=== PATIENT | male | born 1970 | race Caucasian/White ===

== ENCOUNTER 2020-03-30 19:36 | Inpatient (IN) | payer MEDICAID ==
[~2020-03-30] VITALS: Ht 177.8 cm; Wt 86.4 kg
[~2020-03-30 19:36] MED LIST: ALBU8.5H8 INH; GLYC10.7 INH; LACT1CAP26 PO; LEVO750T46 PO; LOSA25TA96 PO; MAGN400O6 PO; METR500T PO; NICO-687 TD
[2020-03-30 20:02] LABS: BASOPHILS # (AUTO) 0.1 X10'3 (0-0.2); BASOPHILS % (AUTO) 0.8 % (0-1); EOSINOPHILS % (AUTO) 0.3 % (0-6); HEMATOCRIT 47.4 % (42.0-52.0); HEMOGLOBIN 16.2 g/dl (14.0-17.9); LYMPHOCYTES # (AUTO) 3.7 X10'3 (1.1-4.8); LYMPHOCYTES % (AUTO) 22.6 % (21-51); MEAN CORPUSCULAR HEMOGLOBIN 35.9 PG (27.0-31.0); MEAN CORPUSCULAR HGB CONC 34.2 g/dL (33.0-36.5); MEAN CORPUSCULAR VOLUME 104.8 FL (78-98); MEAN PLATELET VOLUME 7.8 FL (7.4-10.4); MONOCYTES # (AUTO) 1.9 X10'3 (0-0.9); MONOCYTES % (AUTO) 11.5 % (2-12); NEUTROPHILS # (AUTO) 10.7 X10'3 (1.8-7.7); NEUTROPHILS % (AUTO) 64.8 % (42-75); PLATELET COUNT 211 X10'3 (140-440); RED BLOOD COUNT 4.52 X10'6 (4.70-6.10); RED CELL DISTRIBUTION WIDTH 15.8 % (11.5-14.5); WHITE BLOOD COUNT 16.5 X10'3 (4.5-11.0)
[2020-03-30 20:16] LABS: ALANINE AMINOTRANSFERASE 67 U/L (12-78); ALBUMIN 3.1 G/DL (3.4-5.0); ALBUMIN/GLOBULIN RATIO 0.7 (1.1-1.5); ALKALINE PHOSPHATASE 90 IU/L (46-116); ANION GAP 11 (8-16); ASPARTATE AMINO TRANSFERASE 67 U/L (10-37); BILIRUBIN,TOTAL 0.4 MG/DL (0.1-1.0); BLOOD UREA NITROGEN 6 MG/DL (7-18); BUN/CREATININE RATIO 6.1 (5.4-32.0); CALCIUM 8.1 MG/DL (8.5-10.1); CHLORIDE 102 MMOL/L (99-107); CREATININE 0.99 MG/DL (0.60-1.10); GLUCOSE 129 MG/DL (70-104); LIPASE 250 U/L (73-393); POTASSIUM 3.1 MMOL/L (3.5-5.1); SODIUM 137 MMOL/L (135-145); TOTAL CARBON DIOXIDE 23.7 MMOL/L (24-32); TOTAL PROTEIN 7.7 G/DL (6.4-8.2); eGFR 80 ML/MIN
[2020-03-30] MEDS ORDERED: iohexol 300mg/ml 100ml inj. ONE (20:37)
[2020-03-30] MEDS ORDERED: normal saline 1000ML IV soln IVB ONE (21:30)
[2020-03-30] MEDS ORDERED: piperacillin/tazo 3.375gm/50ml 50 ML IV ONE (21:40)
[2020-03-30] MEDS ORDERED: vancomycin/NS 1 GM ADD-VANTAGE 250 ML IV ONE (21:40)
[2020-03-30] MEDS ORDERED: morphine 4 MG/ML inj SYRINge IV ONE (21:45)
[2020-03-30] MEDS: piperacillin/tazo 3.375gm/50ml 50 ML IV SCH (22:08)
[2020-03-30] MEDS ORDERED: ondansetron/PF 4mg/2ml inj IV PRN (22:10)
[2020-03-30] MEDS ORDERED: potassium Cl 40MEQ/1/2NS 520ml 520 ML IV PRN ×2 (22:10)
[2020-03-30] MEDS ORDERED: morphine 2 MG/ML inj. syringe IV PRN (22:10)
[2020-03-30] MEDS ORDERED: acetaminophen 325mg tablet PO PRN (22:10)
[2020-03-30] MEDS ORDERED: magnesium hydroxide 30ml (MOM) UD suspension PO PRN (22:10)
[2020-03-30] MEDS ORDERED: potassium Cl 20 mEq SR tablet PO PRN ×2 (22:10)
[2020-03-30] MEDS ORDERED: mag hydrox/Alum hydrox/simeth 30ml oral suspension PO PRN (22:10)
[2020-03-30] MEDS ORDERED: thiamine inj. 100 MG in normal saline 100ml IV soln 100 ML IV ONE (22:15)
[2020-03-30] MEDS ORDERED: LORazepam 1 MG tablet PO PRN (22:15)
[2020-03-30 22:19] LABS: CLARITY,URINE CLEAR (Clear); COLOR,URINE YELLOW (Yellow); GLUCOSE, URINE NEGATIVE (Neg); KETONES,URINE NEGATIVE (Neg); LEUKOCYTE ESTERASE ,URINE NEGATIVE (Neg); NITRITES, URINE NEGATIVE (Neg); OCCULT BLOOD,URINE NEGATIVE (Neg); PH,URINE 6.5 (4.8-8.0); PROTEIN,URINE NEGATIVE (Neg); UROBILINOGEN,URINE 0.2 E.U/dL (0.2-1.0)
[2020-03-30 22:20] LABS: UA COLLECTION TYPE CLN CATCH MIDSTREAM
[2020-03-30] MEDS ORDERED: thiamine 100mg/ml 2ml inj. IV ONE (22:20)
[2020-03-31] VITALS (19 sets, daily range): BP systolic 105–182; BP diastolic 70–106
[2020-03-31] MEDS ORDERED: piperacillin/tazo 3.375gm/50ml 50 ML IV SCH
--- NOTE | 2020-03-31 00:16 | NUR ---
MICHELINE CALLED TO ASK ABOUT DIAGNOSIS ADVISED I CAN NOT RELEASED INFORMATION OVER PHONE SHE ASJED TO HAVE HER CALL HER.
--- NOTE | 2020-03-31 00:16 | NUR ---
Johann ramos in ED - 03/31/20 at 0246 by TYRA MICHELINE CALLED TO ASK ABOUT DIAGNOSIS ADVISED I CAN NOT RELEASED INFORMATION OVER PHONE SHE ASJED TO HAVE HER CALL HER.
[2020-03-31] MEDS: normal saline 1000ml 1,000 ML IV SCH ×2 (00:17→08:10)
[2020-03-31] MEDS: clindamycin 600mg/D5W 50ml 50 ML IV SCH ×2 (01:35→07:31)
--- NOTE | 2020-03-31 05:13 | NUR ---
Patient is alert and oriented,denies pain, had a tiny bowel movement, soft formed brown stool. Patient is friendly with staff. No alcohol breath. Patient electrolytes replaced. Patient will be admitted as an in patient .
[2020-03-31] MEDS: piperacillin/tazo 3.375gm/50ml 50 ML IV SCH (05:29)
[2020-03-31] MEDS: morphine 2 MG/ML inj. syringe IV PRN ×2 (05:32→09:46)
--- NOTE | 2020-03-31 07:00 | NUR ---
Patient in room ED 14. I have received report from Anamika KOVACS in ER and had the opportunity to ask questions will assume patient care when patient comes to the floor.
--- NOTE | 2020-03-31 07:23 | NUR ---
Patient arrived to floor used restroom and voided, Patient appears pretty shakey but steady on his feet checked blood glucose 81. Will continue to monitor. Patient is alert and oriented. Patient states he drinks black velvet every other day about 1 pint. Will continue to monitor and treat for DT.
[2020-03-31] MEDS: LORazepam 2 mg/ml vial IV PRN ×3 (07:31→20:57)
[2020-03-31 07:41] LABS: BASOPHILS # (AUTO) 0.1 X10'3 (0-0.2); BASOPHILS % (AUTO) 0.6 % (0-1); EOSINOPHILS % (AUTO) 0.2 % (0-6); HEMATOCRIT 41.4 % (42.0-52.0); HEMOGLOBIN 14.2 g/dl (14.0-17.9); LYMPHOCYTES # (AUTO) 1.5 X10'3 (1.1-4.8); LYMPHOCYTES % (AUTO) 13.7 % (21-51); MEAN CORPUSCULAR HEMOGLOBIN 36.2 PG (27.0-31.0); MEAN CORPUSCULAR HGB CONC 34.4 g/dL (33.0-36.5); MEAN CORPUSCULAR VOLUME 105.4 FL (78-98); MEAN PLATELET VOLUME 7.8 FL (7.4-10.4); MONOCYTES % (AUTO) 9.3 % (2-12); NEUTROPHILS # (AUTO) 8.5 X10'3 (1.8-7.7); NEUTROPHILS % (AUTO) 76.2 % (42-75); PLATELET COUNT 179 X10'3 (140-440); RED BLOOD COUNT 3.93 X10'6 (4.70-6.10); RED CELL DISTRIBUTION WIDTH 15.7 % (11.5-14.5); WHITE BLOOD COUNT 11.2 X10'3 (4.5-11.0)
--- NOTE | 2020-03-31 07:44 | NUR ---
PAGER ID: [phone] MESSAGE: [facility] [id number] Re: Antonio Victoria would like nicotine patch, can he have RT eval tx and IV fluids change to have D5? please call thank you
[2020-03-31] MEDS ORDERED: losartan 50mg tablet PO SCH (08:00)
[2020-03-31] MEDS ORDERED: K and/or MAG REPLACEMENT MC SCH (08:00)
[2020-03-31 08:03] LABS: ALANINE AMINOTRANSFERASE 66 U/L (12-78); ALBUMIN 2.8 G/DL (3.4-5.0); ALBUMIN/GLOBULIN RATIO 0.7 (1.1-1.5); ALKALINE PHOSPHATASE 80 IU/L (46-116); ANION GAP 10 (8-16); ASPARTATE AMINO TRANSFERASE 74 U/L (10-37); BILIRUBIN,TOTAL 0.5 MG/DL (0.1-1.0); BLOOD UREA NITROGEN 3 MG/DL (7-18); BUN/CREATININE RATIO 3.7 (5.4-32.0); CALCIUM 7.5 MG/DL (8.5-10.1); CHLORIDE 107 MMOL/L (99-107); CREATININE 0.81 MG/DL (0.60-1.10); GLUCOSE 87 MG/DL (70-104); POTASSIUM 4.1 MMOL/L (3.5-5.1); SODIUM 142 MMOL/L (135-145); TOTAL CARBON DIOXIDE 24.7 MMOL/L (24-32); eGFR > 90 ML/MIN
[2020-03-31] MEDS ORDERED: magnesium 4gm in 100ml NS 100 ML IV PRN (09:50)
[2020-03-31] MEDS ORDERED: dextrose 5%-normal saline 1,000 ML IV SCH (09:50)
[2020-03-31] MEDS ORDERED: magnesium Cl slow-release 64mg tablet PO PRN (09:50)
[2020-03-31] MEDS ORDERED: ipratropium/albuterol 3ml nebule NEB PRN (09:50)
[2020-03-31] MEDS ORDERED: nicotine 21mg patch - 24 hr TD ONE (09:50)
[2020-03-31] MEDS ORDERED: levoFLOXACIN-Levaquin 750MG/D5 150 ML IV SCH (09:55)
[2020-03-31] MEDS: metroNIDAZOLE-Flagyl 500mg/NS 100 ML IV SCH ×2 (10:11→16:00)
[2020-03-31 10:52] LABS: ETHANOL 0.114 GM/DL (0.0-0.010)
[2020-03-31] MEDS ORDERED: normal saline 1000ml 1,000 ML IVB ONE (11:35)
[2020-03-31] MEDS: ringers solution, lacted 1,000 ML IV SCH ×2 (12:01→20:57)
[2020-03-31 12:40] LABS: PRE OP PARTIAL THROMB. TIME 31 SECONDS (22-32)
[2020-03-31] MEDS ORDERED: LIDOcaine 1% 30ml preserv. free vial ONE (13:07)
[2020-03-31] MEDS ORDERED: BUPIVAcaine/PF 2.5 mg/ml (0.25%) 30ml vial ONE (13:07)
[2020-03-31] MEDS ORDERED: labetalol 20mg/4ml (5mg/ml) syringe IV PRN (13:25)
[2020-03-31] MEDS ORDERED: morphine 2 MG/ML inj. syringe IV PRN (13:25)
[2020-03-31] MEDS ORDERED: ondansetron/PF 4mg/2ml inj IV PRN (13:25)
[2020-03-31] MEDS ORDERED: hydrALAZINE 20mg/ml inj. IV PRN (13:25)
[2020-03-31] MEDS ORDERED: meperidine/PF 25mg/ml syringe IV PRN ×3 (13:25)
[2020-03-31] MEDS ORDERED: acetaminophen 1,000mg/100ml IV 100 ML IV PRN (13:25)
[2020-03-31] MEDS ORDERED: proCHLORperazine 10 MG/2 ml inj IV PRN (13:25)
[2020-03-31] MEDS ORDERED: morphine 4 MG/ML inj SYRINge IV PRN (13:25)
[2020-03-31] MEDS ORDERED: ringers solution, lacted 1,000 ML IV SCH (13:25)
--- NOTE | 2020-03-31 13:28 | NUR ---
Called [facility] to give report on patient coming to them. Report given to Dr gill.
--- NOTE | 2020-03-31 13:30 | NUR ---
Patient report given to Chasidy KOVACS in OR. All questions answered aware patient blood glucose is 76.
[2020-03-31] MEDS ORDERED: INDOCYANINE GREEN 25 MG/10 ML VIAL IV ONE (13:41)
[2020-03-31] MEDS ORDERED: dexamethasone sod phosphate 10mg/ml inj ONE (13:45)
[2020-03-31] MEDS ORDERED: ondansetron/PF 4mg/2ml inj ONE (13:45)
[2020-03-31] MEDS ORDERED: sevoflurane 250ml liquid IH ONE (13:45)
[2020-03-31] MEDS ORDERED: midazolam 2 mg/2 ml injection ONE (13:46)
[2020-03-31] MEDS ORDERED: fentaNYL /PF 50mcg/ml 5ml ampule ONE ×2 (13:52→15:07)
[2020-03-31 14:10] LABS: URINE AMPHETAMINE SCREEN NEGATIVE (Neg); URINE BARBITUATE SCREEN NEGATIVE (Neg); URINE BENZODIAZEPINES SCREEN NEGATIVE (Neg); URINE CANNABINOID SCREEN POSITIVE (Neg); URINE COCAINE SCREEN NEGATIVE (Neg); URINE METHADONE SCREEN NEGATIVE (Neg); URINE OPIATE SCREEN POSITIVE (Neg); URINE PHENCYCLIDINE SCREEN NEGATIVE (Neg)
[2020-03-31] MEDS ORDERED: thiamine inj. 100 MG, magnesium sulf injection 2 GM, MVI, adult No.4 with vit. K 10 ML ... IV ONE ×4 (14:40)
[2020-03-31] MEDS ORDERED: albumin (Human) 5% 250ml 250 ML IV ONE ×2 (14:43→16:35)
[2020-03-31] MEDS ORDERED: LIDOcaine 1% (10mg/ml) 2ml vial ONE (14:50)
[2020-03-31] MEDS ORDERED: LIDOcaine 2% (20mg/ml) 5ml vial ONE (14:50)
[2020-03-31] MEDS ORDERED: rocuronium 10mg/ml inj IV ONE ×2 (14:50)
[2020-03-31] MEDS ORDERED: propofol inj 20 ML IV ONE (14:50)
[2020-03-31 14:58] LABS: ABG BASE EXCESS -6.4 mmol/L (-2.0-2.0); ABG HCO3 20.8 mmol/L (22.0-26.0); ABG OXYGEN SATURATION 99.2 % (94-97); ABG PCO2 (T) 48.8 mmHg (35.0-48.0); FCOHb 0.1 % (0.0-3.9); FMetHb 0.4 % (0.0-1.5); FO2Hb 98.7 % (94-97); PATIENT TEMPERATURE 37.5; TOTAL HEMOGLOBIN 13.2 G/dl (14.0-18.0)
[2020-03-31] MEDS ORDERED: ertapenem sod inj 1 GM in normal saline 100ml IVPB IV ONE (15:00)
[2020-03-31 16:51] LABS: ABG HCO3 19.9 mmol/L (22.0-26.0); ABG OXYGEN SATURATION 96.9 % (94-97); ABG PCO2 (T) 34.8 mmHg (35.0-48.0); ABG PO2 (T) 89.4 mmHg (75.0-100.0); FCOHb 0.3 % (0.0-3.9); FMetHb 0.3 % (0.0-1.5); FO2Hb 96.3 % (94-97); TOTAL HEMOGLOBIN 11.7 G/dl (14.0-18.0)
[2020-03-31] MEDS ORDERED: midazolam 2 mg/2 ml injection IV ONE (17:30)
[2020-03-31] MEDS ORDERED: fentaNYL/PF 50MCG/1 ML 2ML syringe IV PRN (17:30)
--- NOTE | 2020-03-31 18:00 | NUR ---
Received from OR via BED IN ICU ROOM 243A, accompanied by Anesthesiologist DR MCLAIN and report given by Anesthesiologist. PT SEDATED ON VENT. ABDOMEN W/3 LAP SITES W/BANDAIDS CDI, [place] DRSG CDI. ABILIO TO BULB SX W/SANGUINOUS DRAINAGE, VIERA CATHETER TO GRAVITY DRAINAGE W/YELLOW URINE IN DRAINAGE BAG. NGT TO RIGHT NARE, BLOODY DRAINAGE NOTED. ART LINE TRANSDUCED. Addendum: 03/31/20 at 1835 by Kathleen Hough RN Amended: Links added.
[2020-03-31] MEDS: midazolam 100mg in NS 100ml 100 ML IV PRN (18:06)
[2020-03-31] MEDS: FENTANYL-0.9 % NACL/PF 100 ML IV PRN ×2 (18:07→23:24)
[2020-03-31] MEDS ORDERED: labetalol 20mg/4ml (5mg/ml) syringe IV ONE (18:39)
--- NOTE | 2020-03-31 18:50 | NUR ---
PT RECOVERED IN ICU, RECEIVING RN AT BEDSIDE. SEDATION AND PAIN MEDICATION INITIATED, ALL LINES INTACT, CXR OBTAINED AND REVIEWED BY DR MCLAIN. REPORT TO RECEIVING RN. Addendum: 03/31/20 at 1858 by Kathleen Hough RN Amended: Links added.
[2020-03-31] MEDS: albuterol 2.5 MG/3 ML nebule NEB SCH ×2 (19:19→23:07)
[2020-03-31] MEDS: K and/or MAG REPLACEMENT MC SCH (20:00)
[2020-03-31 20:31] LABS: ABG BASE EXCESS -4.1 mmol/L (-2.0-2.0); ABG HCO3 20.6 mmol/L (22.0-26.0); ABG OXYGEN SATURATION 94.4 % (94-97); ABG PCO2 (T) 36.8 mmHg (35.0-48.0); ABG PO2 (T) 73.9 mmHg (75.0-100.0); FCOHb 0.8 % (0.0-3.9); FMetHb 0.2 % (0.0-1.5); FO2Hb 93.5 % (94-97); PATIENT TEMPERATURE 37.1; PEEP 5 cm H2O; RESPIRATORY RATE 14 b/min; TIDAL VOLUME 500 mL; TOTAL HEMOGLOBIN 13.2 G/dl (14.0-18.0)
[2020-03-31] MEDS: losartan 25mg tablet PO SCH (20:57)
[2020-03-31] MEDS: piperacillin/tazo 4.5gm/100ml 100 ML IV SCH (20:57)
[2020-03-31] MEDS ORDERED: pantoprazole 40 MG vial IV ONE (23:40)
[2020-04-01] VITALS (24 sets, daily range): BP systolic 102–163; BP diastolic 66–99
[2020-04-01] MEDS: metroNIDAZOLE-Flagyl 500mg/NS 100 ML IV SCH ×2 (00:06→08:17)
[2020-04-01] MEDS: LORazepam 2 mg/ml vial IV PRN ×6 (00:06→23:25)
[2020-04-01] MEDS: ringers solution, lacted 1,000 ML IV SCH ×2 (00:55→08:17)
[2020-04-01] MEDS: albuterol 2.5 MG/3 ML nebule NEB SCH ×6 (03:05→23:08)
[2020-04-01 03:12] LABS: BASOPHILS # (AUTO) 0.1 X10'3 (0-0.2); BASOPHILS % (AUTO) 0.5 % (0-1); EOSINOPHILS % (AUTO) 0.1 % (0-6); HEMATOCRIT 35.2 % (42.0-52.0); HEMOGLOBIN 12.1 g/dl (14.0-17.9); LYMPHOCYTES # (AUTO) 1.3 X10'3 (1.1-4.8); LYMPHOCYTES % (AUTO) 11.6 % (21-51); MEAN CORPUSCULAR HEMOGLOBIN 36.5 PG (27.0-31.0); MEAN CORPUSCULAR HGB CONC 34.3 g/dL (33.0-36.5); MEAN CORPUSCULAR VOLUME 106.4 FL (78-98); MEAN PLATELET VOLUME 8.1 FL (7.4-10.4); MONOCYTES # (AUTO) 0.8 X10'3 (0-0.9); MONOCYTES % (AUTO) 7.4 % (2-12); NEUTROPHILS # (AUTO) 8.8 X10'3 (1.8-7.7); NEUTROPHILS % (AUTO) 80.4 % (42-75); PLATELET COUNT 152 X10'3 (140-440); RED CELL DISTRIBUTION WIDTH 15.7 % (11.5-14.5); WHITE BLOOD COUNT 10.9 X10'3 (4.5-11.0)
[2020-04-01 03:21] LABS: ALANINE AMINOTRANSFERASE 37 U/L (12-78); ALBUMIN 2.4 G/DL (3.4-5.0); ALBUMIN/GLOBULIN RATIO 0.8 (1.1-1.5); ALKALINE PHOSPHATASE 57 IU/L (46-116); ANION GAP 10 (8-16); ASPARTATE AMINO TRANSFERASE 36 U/L (10-37); BLOOD UREA NITROGEN 3 MG/DL (7-18); BUN/CREATININE RATIO 3.9 (5.4-32.0); CALCIUM 6.9 MG/DL (8.5-10.1); CHLORIDE 101 MMOL/L (99-107); CREATININE 0.77 MG/DL (0.60-1.10); GLUCOSE 94 MG/DL (70-104); MAGNESIUM 1.7 MG/DL (1.5-2.4); PHOSPHORUS 2.1 MG/DL (2.3-4.5); POTASSIUM 3.7 MMOL/L (3.5-5.1); SODIUM 135 MMOL/L (135-145); TOTAL CARBON DIOXIDE 23.6 MMOL/L (24-32); TOTAL PROTEIN 5.6 G/DL (6.4-8.2); eGFR > 90 ML/MIN
[2020-04-01 03:28] LABS: ABG BASE EXCESS -2.9 mmol/L (-2.0-2.0); ABG HCO3 21.8 mmol/L (22.0-26.0); ABG OXYGEN SATURATION 97.4 % (94-97); ABG PCO2 (T) 38.6 mmHg (35.0-48.0); ABG PO2 (T) 99.1 mmHg (75.0-100.0); FCOHb 0.9 % (0.0-3.9); FMetHb 0.1 % (0.0-1.5); FO2Hb 96.4 % (94-97); PATIENT TEMPERATURE 37.6; PEEP 5 cm H2O; RESPIRATORY RATE 14 b/min; TIDAL VOLUME 500 mL
[2020-04-01] MEDS: midazolam 100mg in NS 100ml 100 ML IV PRN (03:57)
[2020-04-01] MEDS: FENTANYL-0.9 % NACL/PF 100 ML IV PRN (05:42)
[2020-04-01] MEDS: K and/or MAG REPLACEMENT MC SCH ×2 (08:00→20:00)
[2020-04-01] MEDS: fluconazole/NS 400mg/200ml bag 200 ML IV SCH (08:17)
[2020-04-01] MEDS: heparin, porcine 5000 units/ml vial SQ SCH ×2 (08:18→20:59)
[2020-04-01] MEDS: losartan 25mg tablet PO SCH ×2 (08:18→20:50)
[2020-04-01] MEDS: piperacillin/tazo 4.5gm/100ml 100 ML IV SCH ×2 (08:21→20:55)
[2020-04-01] MEDS: pantoprazole 40 MG vial IV SCH (08:21)
[2020-04-01] MEDS: nicotine 21mg patch - 24 hr TD SCH (08:22)
[2020-04-01] MEDS: thiamine inj. 100 MG, magnesium sulf injection 2 GM, MVI, adult No.4 with vit. K 10 ML ... IV SCH ×4 (08:22)
[2020-04-01] MEDS ORDERED: furosemide 40mg/4ml inj IV ONE (08:55)
--- NOTE | 2020-04-01 16:23 | NUR ---
RT UNAVAILABLE FOR 1100 SVN
--- NOTE | 2020-04-01 17:10 | NUR ---
Patient extubated at approximately 1520. Sats 97% on 3L NC. Patient medication with Ativan x2 this shift for noted tremors from ETOH withdrawal. Will continue to monitor.
[2020-04-01] MEDS ORDERED: mineral oil/petrolatum ophthal oint EACHEYE SCH (20:00)
[2020-04-01] MEDS: mineral oil/petrolatum ophthal oint EACHEYE SCH (20:00)
[2020-04-01] MEDS: morphine 2 MG/ML inj. syringe IV PRN (22:16)
[2020-04-02] VITALS (21 sets, daily range): BP systolic 138–161; BP diastolic 76–109
[2020-04-02] MEDS: mineral oil/petrolatum ophthal oint EACHEYE SCH ×4 (02:00→20:00)
[2020-04-02] MEDS: LORazepam 2 mg/ml vial IV PRN ×6 (02:06→20:53)
[2020-04-02] MEDS: morphine 2 MG/ML inj. syringe IV PRN ×4 (02:21→23:44)
[2020-04-02 02:51] LABS: BASOPHILS % (AUTO) 0.4 % (0-1); EOSINOPHILS % (AUTO) 0.4 % (0-6); HEMATOCRIT 34.2 % (42.0-52.0); HEMOGLOBIN 11.7 g/dl (14.0-17.9); LYMPHOCYTES # (AUTO) 1.3 X10'3 (1.1-4.8); LYMPHOCYTES % (AUTO) 9.9 % (21-51); MEAN CORPUSCULAR HEMOGLOBIN 36.4 PG (27.0-31.0); MEAN CORPUSCULAR HGB CONC 34.4 g/dL (33.0-36.5); MEAN CORPUSCULAR VOLUME 105.9 FL (78-98); MEAN PLATELET VOLUME 8.2 FL (7.4-10.4); MONOCYTES # (AUTO) 1.1 X10'3 (0-0.9); MONOCYTES % (AUTO) 8.6 % (2-12); NEUTROPHILS # (AUTO) 10.4 X10'3 (1.8-7.7); NEUTROPHILS % (AUTO) 80.7 % (42-75); PLATELET COUNT 171 X10'3 (140-440); RED BLOOD COUNT 3.23 X10'6 (4.70-6.10); RED CELL DISTRIBUTION WIDTH 15.2 % (11.5-14.5); WHITE BLOOD COUNT 12.8 X10'3 (4.5-11.0)
[2020-04-02 02:59] LABS: ALANINE AMINOTRANSFERASE 30 U/L (12-78); ALBUMIN 2.3 G/DL (3.4-5.0); ALBUMIN/GLOBULIN RATIO 0.6 (1.1-1.5); ALKALINE PHOSPHATASE 59 IU/L (46-116); ANION GAP 9 (8-16); ASPARTATE AMINO TRANSFERASE 27 U/L (10-37); BILIRUBIN,TOTAL 0.7 MG/DL (0.1-1.0); BLOOD UREA NITROGEN 4 MG/DL (7-18); BUN/CREATININE RATIO 5.2 (5.4-32.0); CALCIUM 7.4 MG/DL (8.5-10.1); CHLORIDE 101 MMOL/L (99-107); CREATININE 0.77 MG/DL (0.60-1.10); GLUCOSE 87 MG/DL (70-104); MAGNESIUM 2.1 MG/DL (1.5-2.4); PHOSPHORUS 1.7 MG/DL (2.3-4.5); POTASSIUM 3.8 MMOL/L (3.5-5.1); SODIUM 135 MMOL/L (135-145); eGFR > 90 ML/MIN
[2020-04-02] MEDS: albuterol 2.5 MG/3 ML nebule NEB SCH ×6 (03:01→22:46)
[2020-04-02] MEDS: ringers solution, lacted 1,000 ML IV SCH ×3 (05:32→22:06)
--- NOTE | 2020-04-02 06:50 | NUR ---
Patient in room ICU 2042. I have received report from FERMÍN Prince and had the opportunity to ask questions and assume patient care.
[2020-04-02] MEDS: piperacillin/tazo 4.5gm/100ml 100 ML IV SCH ×2 (07:44→20:52)
[2020-04-02] MEDS: pantoprazole 40 MG vial IV SCH (07:44)
[2020-04-02] MEDS: thiamine inj. 100 MG, magnesium sulf injection 2 GM, MVI, adult No.4 with vit. K 10 ML ... IV SCH ×4 (07:44)
[2020-04-02] MEDS: fluconazole/NS 400mg/200ml bag 200 ML IV SCH (07:44)
[2020-04-02] MEDS: heparin, porcine 5000 units/ml vial SQ SCH ×2 (07:45→21:04)
[2020-04-02] MEDS: losartan 25mg tablet PO SCH ×2 (07:46→21:00)
[2020-04-02] MEDS: K and/or MAG REPLACEMENT MC SCH ×2 (08:36→20:00)
[2020-04-02] MEDS: nicotine 21mg patch - 24 hr TD SCH (08:36)
--- NOTE | 2020-04-02 13:20 | NUR ---
RN explained to the pt. after the Dr. okayed taking out his NG tube that she was going to come back into the room a few minutes later and pull it. when RN came back, pt. was fumbling around in bed like he was trying to stand up and when questioned, pt. said he pulled his NG tube out. RN explained the importance of not pulling his own lines out and how it could do more harm than good. pt. verbalized understanding. Relief nurse was in the room about an hour later to find the pt. pulling on his central line in his neck. same education given and IV dressing reinforced. Bed alarm on pt. d/t pt. being impulsive and trying to get out of bed all shift. education provided multiple times fire investigation lieutenant light and pt. lines.
--- NOTE | 2020-04-02 18:31 | NUR ---
Problems reprioritized. Patient report given, questions answered & plan of care reviewed with FERMÍN Nye.
--- NOTE | 2020-04-02 20:00 | NUR ---
PT HAS NOTICEABLE TREMORS Addendum: 04/03/20 at 0154 by Lynnette Sawyer RN Amended: Links added.
[2020-04-02] MEDS: lactobacillus rhamnosus 10,000 MMU CELLS/CAPSULE PO SCH (21:00)
[2020-04-03] VITALS (24 sets, daily range): BP systolic 97–177; BP diastolic 45–136
[2020-04-03] MEDS: mineral oil/petrolatum ophthal oint EACHEYE SCH ×4 (01:58→19:24)
--- NOTE | 2020-04-03 02:15 | NUR ---
PT BEGAN TRYING TO LEAVE, PULLED OFF HIS ABDOMINAL DRESSING AROUND HIS ABILIO DRAIN, WAS PULLING AT HIS CENTRAL LINE, AND PULLING OFF HIS GOWN. PT WAS CALMED DOWN, AND AGREED TO STAY. MARCH JAC JOHNSON WAS CALLED AND ORDERS WERE RECEIVED FOR A ONE TIME NICOTINE PATCH, ATIVAN WAS REORDERED, CENTRAL LINE WAS DC'D AND VIERA REMOVED. Addendum: 04/03/20 at 0425 by Lynnette Sawyer RN PT STABLE, CONTINUING TO MONITOR
[2020-04-03] MEDS: albuterol 2.5 MG/3 ML nebule NEB SCH ×5 (02:51→18:32)
[2020-04-03] MEDS ORDERED: LORazepam 2 mg/ml vial IV PRN (02:55)
[2020-04-03] MEDS ORDERED: nicotine 21mg patch - 24 hr TD ONE (02:55)
[2020-04-03] MEDS ORDERED: LORazepam 2 mg/ml vial ONE ×2 (03:24→05:37)
[2020-04-03] MEDS: morphine 2 MG/ML inj. syringe IV PRN (03:45)
[2020-04-03] MEDS: LORazepam 2 mg/ml vial IV PRN ×5 (05:50→19:23)
[2020-04-03] MEDS: heparin, porcine 5000 units/ml vial SQ SCH ×2 (08:00→19:28)
[2020-04-03] MEDS: nicotine 21mg patch - 24 hr TD SCH (08:00)
[2020-04-03] MEDS: losartan 25mg tablet PO SCH ×2 (08:00→19:24)
[2020-04-03] MEDS: lactobacillus rhamnosus 10,000 MMU CELLS/CAPSULE PO SCH ×2 (08:01→19:23)
[2020-04-03] MEDS: fluconazole/NS 400mg/200ml bag 200 ML IV SCH (08:01)
[2020-04-03] MEDS: piperacillin/tazo 4.5gm/100ml 100 ML IV SCH ×2 (08:01→19:24)
[2020-04-03] MEDS: thiamine inj. 100 MG, magnesium sulf injection 2 GM, MVI, adult No.4 with vit. K 10 ML ... IV SCH ×4 (08:01)
[2020-04-03] MEDS: pantoprazole 40 MG vial IV SCH (08:01)
--- NOTE | 2020-04-03 09:44 | NUR ---
[employer] J[employer] OPERATOR CALLED FOR PRN MEDICATION FOR SBP, STATED WE WOULD ADDRESS IT IN ROUNDS
--- NOTE | 2020-04-03 10:02 | NUR ---
Initial: Pt admit DX sigmoid abscess r/t diverticulitis s/p ex lap sigmoid colectomy, SIRS, and etoh per MD note. Pt extubated advanced to clear liquid diet yesterday PO 0-25% avg meals not meeting needs. Receiving banana bag for etoh hx. LBM 04/02. Abdomen ABILIO 40ml output past 24 hours per EMR. Would benefit from diverticulitis diet ed once stable and appropriate post-op this admit. Will monitor for diet advancement and tolerance post-op. Rec: 1. advance diet as medically indicated to low-residue 2. monitor for ONS needs 3. thiamin, folic, MVI for etoh hx 4. bowel care per rx 5. scaled wt this admit Addendum: 04/03/20 at [address] Amended: Links added.
[2020-04-03] MEDS: cloNIDine 0.1 mg tablet PO SCH ×3 (11:06→21:00)
[2020-04-03] MEDS: HYDROcodone/acetaminophen 10/325mg tab PO PRN (11:09)
[2020-04-03] MEDS ORDERED: dexmedetomidin/NS 400mcg/100ml 100 ML IV SCH (12:25)
[2020-04-03] MEDS: dexmedetomidine/D5W 100mL 100 ML IV SCH ×2 (12:43→19:05)
[2020-04-03] MEDS ORDERED: cloNIDine 0.1 mg tablet PO SCH (13:00)
--- NOTE | 2020-04-03 18:10 | NUR ---
sbar report given to night nurse, questions answered, EMAR reviewed.
--- NOTE | 2020-04-03 18:11 | NUR ---
Patient in room ICU 2046. I have received report from FERMÍN Zepeda and had the opportunity to ask questions and assume patient care. Patient sleeping, but wakes easily. He is confused and incontinent, I will clean him up with the help of his sitter.
[2020-04-03] MEDS: K and/or MAG REPLACEMENT MC SCH ×2 (18:48→19:24)
[2020-04-03] MEDS: ringers solution, lacted 1,000 ML IV SCH (19:06)
[2020-04-04] VITALS (23 sets, daily range): BP systolic 107–167; BP diastolic 62–108
[2020-04-04] MEDS: LORazepam 2 mg/ml vial IV PRN ×7 (00:31→21:10)
[2020-04-04] MEDS: dexmedetomidine/D5W 100mL 100 ML IV SCH ×2 (04:44→23:14)
[2020-04-04] MEDS: ringers solution, lacted 1,000 ML IV SCH ×2 (05:06→16:20)
--- NOTE | 2020-04-04 05:38 | NUR ---
Patient continues to be confused and agitated, DT's are hitting him hard. Precedex was started yesterday and Ativan is on board Q2hrs. I will pass on to dayshift that Philip might word better than Ativan.
--- NOTE | 2020-04-04 06:08 | NUR ---
Problems reprioritized. Patient report given, questions answered & plan of care reviewed with FERMÍN Zepeda.
[2020-04-04 06:30] LABS: BASOPHILS # (AUTO) 0.1 X10'3 (0-0.2); BASOPHILS % (AUTO) 0.6 % (0-1); EOSINOPHILS # (AUTO) 0.2 X10'3 (0-0.9); EOSINOPHILS % (AUTO) 1.8 % (0-6); HEMATOCRIT 36.7 % (42.0-52.0); HEMOGLOBIN 12.7 g/dl (14.0-17.9); LYMPHOCYTES # (AUTO) 1.3 X10'3 (1.1-4.8); LYMPHOCYTES % (AUTO) 14.6 % (21-51); MEAN CORPUSCULAR HEMOGLOBIN 36.4 PG (27.0-31.0); MEAN CORPUSCULAR HGB CONC 34.6 g/dL (33.0-36.5); MEAN CORPUSCULAR VOLUME 105.1 FL (78-98); MEAN PLATELET VOLUME 7.7 FL (7.4-10.4); MONOCYTES # (AUTO) 1.2 X10'3 (0-0.9); MONOCYTES % (AUTO) 13.7 % (2-12); NEUTROPHILS % (AUTO) 69.3 % (42-75); PLATELET COUNT 277 X10'3 (140-440); RED CELL DISTRIBUTION WIDTH 15.1 % (11.5-14.5); WHITE BLOOD COUNT 8.7 X10'3 (4.5-11.0)
[2020-04-04 06:40] LABS: ALANINE AMINOTRANSFERASE 28 U/L (12-78); ALBUMIN 2.5 G/DL (3.4-5.0); ALBUMIN/GLOBULIN RATIO 0.6 (1.1-1.5); ALKALINE PHOSPHATASE 66 IU/L (46-116); ANION GAP 11 (8-16); ASPARTATE AMINO TRANSFERASE 25 U/L (10-37); BILIRUBIN,TOTAL 0.7 MG/DL (0.1-1.0); BLOOD UREA NITROGEN 4 MG/DL (7-18); BUN/CREATININE RATIO 5.5 (5.4-32.0); CALCIUM 8.7 MG/DL (8.5-10.1); CHLORIDE 103 MMOL/L (99-107); CREATININE 0.73 MG/DL (0.60-1.10); GLUCOSE 106 MG/DL (70-104); MAGNESIUM 2.1 MG/DL (1.5-2.4); PHOSPHORUS 2.6 MG/DL (2.3-4.5); POTASSIUM 3.7 MMOL/L (3.5-5.1); SODIUM 136 MMOL/L (135-145); TOTAL CARBON DIOXIDE 21.6 MMOL/L (24-32); eGFR > 90 ML/MIN
[2020-04-04] MEDS: losartan 25mg tablet PO SCH ×2 (07:04→20:01)
[2020-04-04] MEDS: piperacillin/tazo 4.5gm/100ml 100 ML IV SCH ×2 (07:05→20:02)
[2020-04-04] MEDS: HYDROcodone/acetaminophen 10/325mg tab PO PRN (07:05)
[2020-04-04] MEDS: lactobacillus rhamnosus 10,000 MMU CELLS/CAPSULE PO SCH ×2 (07:05→20:01)
[2020-04-04] MEDS: cloNIDine 0.1 mg tablet PO SCH ×3 (07:05→20:01)
[2020-04-04] MEDS: thiamine inj. 100 MG, magnesium sulf injection 2 GM, MVI, adult No.4 with vit. K 10 ML ... IV SCH ×4 (07:05)
[2020-04-04] MEDS: fluconazole/NS 400mg/200ml bag 200 ML IV SCH (07:06)
[2020-04-04] MEDS: nicotine 21mg patch - 24 hr TD SCH (07:06)
[2020-04-04] MEDS: pantoprazole 40 MG vial IV SCH (07:06)
[2020-04-04] MEDS: heparin, porcine 5000 units/ml vial SQ SCH ×2 (07:06→20:02)
[2020-04-04] MEDS ORDERED: hydrALAZINE 20mg/ml inj. IV ONE (09:50)
[2020-04-04] MEDS: hydrALAZINE 20mg/ml inj. IV PRN ×2 (09:54→16:15)
[2020-04-04] MEDS: niCARDipine-NS 40mg/200ml IVPB 200 ML IV SCH ×2 (13:49→17:27)
--- NOTE | 2020-04-04 18:11 | NUR ---
sbar report given to night nurse, emar reviewed, questions answered.
--- NOTE | 2020-04-04 18:15 | NUR ---
Patient in room ICU 2046. I have received report from FERMÍN Zepeda and had the opportunity to ask questions and assume patient care. Patient calm and cooperative, resting on hospital bed. Sitter is at bedside, I will continue to monitor.
[2020-04-04] MEDS: K and/or MAG REPLACEMENT MC SCH ×2 (20:00→20:02)
[2020-04-05] VITALS (19 sets, daily range): BP systolic 102–132; BP diastolic 68–90
[2020-04-05] MEDS: niCARDipine-NS 40mg/200ml IVPB 200 ML IV SCH ×2 (02:39→08:32)
--- NOTE | 2020-04-05 06:14 | NUR ---
Problems reprioritized. Patient report given, questions answered & plan of care reviewed with FERMÍN Fiore.
[2020-04-05 06:21] LABS: MAGNESIUM 2.1 MG/DL (1.5-2.4); PHOSPHORUS 3.6 MG/DL (2.3-4.5)
--- NOTE | 2020-04-05 06:30 | NUR ---
Received report from haritha KOVACS.
[2020-04-05] MEDS: K and/or MAG REPLACEMENT MC SCH ×2 (08:00→20:00)
[2020-04-05] MEDS: thiamine inj. 100 MG, magnesium sulf injection 2 GM, MVI, adult No.4 with vit. K 10 ML ... IV SCH ×4 (08:25)
[2020-04-05] MEDS: piperacillin/tazo 4.5gm/100ml 100 ML IV SCH (08:25)
[2020-04-05] MEDS: nicotine 21mg patch - 24 hr TD SCH (08:27)
[2020-04-05] MEDS: cloNIDine 0.1 mg tablet PO SCH ×3 (08:28→20:43)
[2020-04-05] MEDS: fluconazole 100mg tablet PO SCH (08:28)
[2020-04-05] MEDS: LORazepam 2 mg/ml vial IV PRN (08:28)
[2020-04-05] MEDS: heparin, porcine 5000 units/ml vial SQ SCH ×2 (08:28→20:48)
[2020-04-05] MEDS: losartan 25mg tablet PO SCH ×2 (08:29→20:44)
[2020-04-05] MEDS: lactobacillus rhamnosus 10,000 MMU CELLS/CAPSULE PO SCH ×2 (08:29→20:43)
[2020-04-05] MEDS: pantoprazole 40mg Tablet.DR PO SCH (08:29)
[2020-04-05] MEDS: ringers solution, lacted 1,000 ML IV SCH (08:32)
--- NOTE | 2020-04-05 11:34 | NUR ---
F/u 04/05: Pt not appropriate for diverticulitis ed at this time r/t lauren w/d. Written low-fiber MNT handout w/ RD contact information placed in pt chart. Addendum: 04/05/20 at [address] RD Amended: Links added.
[2020-04-05] MEDS: piperacillin/tazo 3.375gm/50ml 50 ML IV SCH (13:58)
--- NOTE | 2020-04-05 14:58 | NUR ---
Patient in room ICU 2046. I have received report from FERMÍN Fiore and had the opportunity to ask questions and assume patient care. Awaiting patient arrival to room 3029q.
--- NOTE | 2020-04-05 15:51 | NUR ---
Patient transferred to room 3023C via hospital bed with well puller, all belongings with patient. Report given to receiving RN.
--- NOTE | 2020-04-05 16:05 | NUR ---
Received patient to room 3023C via bed accompanied by x2 staff. Sitter at bedside. Patient alert and oriented x3, very pleasant and no complaints at this time. Patient oriented to room and call light. Call light placed within reach, bed low and locked. Tele monitor #4 on.
--- NOTE | 2020-04-05 18:22 | NUR ---
Problems reprioritized. Patient report given, questions answered & plan of care reviewed with FERMÍN Luo.
--- NOTE | 2020-04-05 18:30 | NUR ---
Patient in room PCU 3023. I have received report from SHANNAN KOVACS and had the opportunity to ask questions and assume patient care.
[2020-04-06] MEDS: piperacillin/tazo 3.375gm/50ml 50 ML IV SCH ×4 (00:05→23:19)
[2020-04-06 02:00] VITALS: BP 121/73
[2020-04-06 06:00] VITALS: BP 118/82
--- NOTE | 2020-04-06 06:30 | NUR ---
Problems reprioritized. Patient report given, questions answered & plan of care reviewed with PARVIZ KOVACS.
--- NOTE | 2020-04-06 06:56 | NUR ---
Patient in room PCU 3023. I have received report from FERMÍN Luo and had the opportunity to ask questions and assume patient care.
[2020-04-06] MEDS: pantoprazole 40mg Tablet.DR PO SCH (07:42)
[2020-04-06] MEDS: losartan 25mg tablet PO SCH ×2 (07:42→19:15)
[2020-04-06] MEDS: lactobacillus rhamnosus 10,000 MMU CELLS/CAPSULE PO SCH ×2 (07:43→19:15)
[2020-04-06] MEDS: nicotine 21mg patch - 24 hr TD SCH (07:43)
[2020-04-06] MEDS: cloNIDine 0.1 mg tablet PO SCH ×3 (07:43→20:22)
[2020-04-06] MEDS: heparin, porcine 5000 units/ml vial SQ SCH ×2 (07:44→19:16)
[2020-04-06] MEDS: K and/or MAG REPLACEMENT MC SCH ×2 (08:00→20:00)
[2020-04-06] MEDS: fluconazole 100mg tablet PO SCH (09:01)
[2020-04-06 11:00] VITALS: BP 123/76
--- NOTE | 2020-04-06 12:29 | NUR ---
Reassessment: Surgical wound present to abdomen with ABILIO drain. Pt admit DX sigmoid abscess r/t diverticulitis s/p ex lap sigmoid colectomy, SIRS, and etoh per MD note. PO 0-25% avg meals regular diet not meeting needs, however did improve to 50-75% for past two meals. Receiving banana bag for etoh hx. Last BM 04/06. Pt seen at bedside, reports improving appetite and reported to eat all of this breakfast on 04/06, states does not like peaches, notified dietary. Able to fill out menu and make selections; reports no GI symptoms. Encouraged pt to eat protein. Will continue to follow. Rec: 1. Continue regular diet 2. monitor for ONS needs, current PO Intake and appetite are improving 3. thiamin, folic, MVI for etoh hx 4. bowel care per rx 5. scaled wt this admit Addendum: 04/06/20 at [address] Amended: Links added.
[2020-04-06 15:00] VITALS: BP 135/87
[2020-04-06 18:00] VITALS: BP 134/89
--- NOTE | 2020-04-06 18:00 | NUR ---
Patient in room PCU 3023. I have received report from Anna KOVACS and had the opportunity to ask questions and assume patient care.
--- NOTE | 2020-04-06 18:31 | NUR ---
Problems reprioritized. Patient report given, questions answered & plan of care reviewed with FERMÍN Uribe.
[2020-04-07 02:00] VITALS: BP 134/74
--- NOTE | 2020-04-07 06:50 | NUR ---
Problems reprioritized. Patient report given, questions answered & plan of care reviewed with Florecita KOVACS.
--- NOTE | 2020-04-07 06:58 | NUR ---
Patient in room PCU 3023. I have received report from Anita KOVACS and had the opportunity to ask questions and assume patient care.
[2020-04-07] MEDS: cloNIDine 0.1 mg tablet PO SCH (09:32)
[2020-04-07] MEDS: pantoprazole 40mg Tablet.DR PO SCH (09:32)
[2020-04-07] MEDS: lactobacillus rhamnosus 10,000 MMU CELLS/CAPSULE PO SCH (09:33)
[2020-04-07] MEDS: nicotine 21mg patch - 24 hr TD SCH (09:34)
[2020-04-07] MEDS: fluconazole 100mg tablet PO SCH (09:34)
[2020-04-07] MEDS: heparin, porcine 5000 units/ml vial SQ SCH (09:44)
[2020-04-07] MEDS: losartan 25mg tablet PO SCH (09:44)
[2020-04-07] MEDS: piperacillin/tazo 3.375gm/50ml 50 ML IV SCH (09:46)
[2020-04-07] MEDS ORDERED: THIA50TA10 PO (11:04)
[2020-04-07] MEDS ORDERED: CLON0.1T2 PO (11:04)
[2020-04-07] MEDS ORDERED: FOLI0.4T2 PO (11:04)
[2020-04-07] MEDS ORDERED: LACT1CAP26 PO (11:04)
[2020-04-07] MEDS ORDERED: AMOX-580 PO (11:04)
[2020-04-07] MEDS ORDERED: MULT-1085 PO (11:04)
[2020-04-07] MEDS ORDERED: PANT40TA54 PO (11:04)
--- NOTE | 2020-04-07 14:02 | NUR ---
Patient is OK to discharge per MD orders. Patient PIVs and tele was removed. Discharge instructions were gone over adan all medications were educated on. Patient was able to transfer self and ambulate without assistance. Patient dressed self and called for ride. Patient was escorted to the front main via wheelchair and nurse. Patient was met by in private car. Patient and spouse in good spirits
== END 2020-04-07 13:59 | disposition home or self-care (01) | DRG 710 ==
LOC: ER 19:36 → ED HOLD 22:08 → SUR 3N 03-31 07:25 → PACU 03-31 17:18 → ICU 2S 03-31 17:58 → PCU 3S 04-05 15:37
PROVIDERS: ADMIT Internal Medicine; ATTEND Family Medicine
PROC: BW211ZZ Computerized Tomography (CT Scan) of Abdomen and Pelvis using Low Osmolar Contrast (ICD-10-PCS; 2020-03-30)
PROC: 0W9J4ZZ Drainage of Pelvic Cavity, Percutaneous Endoscopic Approach (ICD-10-PCS; 2020-03-31)
PROC: 8E0W4CZ Robotic Assisted Procedure of Trunk Region, Percutaneous Endoscopic Approach (ICD-10-PCS; 2020-03-31)
PROC: 0DTN4ZZ Resection of Sigmoid Colon, Percutaneous Endoscopic Approach (ICD-10-PCS; principal; 2020-03-31 13:45)
DX: A41.9 Sepsis, unspecified organism (principal); F12.90 Cannabis use, unspecified, uncomplicated; F17.210 Nicotine dependence, cigarettes, uncomplicated; I10 Essential (primary) hypertension; J44.9 Chronic obstructive pulmonary disease, unspecified; K57.20 Diverticulitis of large intestine with perforation and abscess without bleeding; K59.00 Constipation, unspecified; K65.1 Peritoneal abscess; Z78.1 Physical restraint status; Z91.19 Patient's noncompliance with other medical treatment and regimen; J96.00 Acute respiratory failure, unspecified whether with hypoxia or hypercapnia; F10.10 Alcohol abuse, uncomplicated; Z20.822 Contact with and (suspected) exposure to COVID-19
CPT/HCPCS: 36415; 36600; 71045; 74177; 80053; 80305; 80320; 81003; 82803; 82948; 83605; 83690; 83735; 84100; 84145; 84443; 85018; 85025; 85610; 85730; 87040; 87070; 87081; 87635; 93005; 94002; 94003; 94640; 94760; 96374; 96375; 97110; 97116; 97161; 97530; 99285; A4215; A4618; A6258; A6402; A7000; C1758; C9113; G0378; J0360; J1100; J1335; J1450; J1644; J1940; J1956; J2001; J2060; J2250; J2270; J2405; J2543; J2704; J3010; J3370; J3411; J3475; J3480; J3490; J7030; J7040; J7042; J7060; J7120; P9045; Q9967

== ENCOUNTER 2020-06-22 20:45 | Emergency (ER) | payer MEDICAID ==
[~2020-06-22] VITALS: Ht 177.8 cm; Wt 81.8 kg
[~2020-06-22 20:45] MED LIST changes: +CLON0.1T2 PO; -GLYC10.7 INH; -LEVO750T46 PO; -MAGN400O6 PO; -METR500T PO; +MULT-1085 PO; -NICO-687 TD; +PANT40TA54 PO; +THIA50TA10 PO
[2020-06-22] MEDS ORDERED: aspirin 81mg tab.chew PO ONE (21:10)
[2020-06-22 21:26] LABS: BASOPHILS # (AUTO) 0.1 X10'3 (0-0.2); EOSINOPHILS # (AUTO) 0.1 X10'3 (0-0.9); EOSINOPHILS % (AUTO) 0.8 % (0-6); HEMATOCRIT 51.5 % (42.0-52.0); HEMOGLOBIN 17.7 g/dl (14.0-17.9); LYMPHOCYTES # (AUTO) 3.2 X10'3 (1.1-4.8); LYMPHOCYTES % (AUTO) 37.6 % (21-51); MEAN CORPUSCULAR HEMOGLOBIN 35.9 PG (27.0-31.0); MEAN CORPUSCULAR HGB CONC 34.4 g/dL (33.0-36.5); MEAN CORPUSCULAR VOLUME 104.1 FL (78-98); MEAN PLATELET VOLUME 8.3 FL (7.4-10.4); MONOCYTES # (AUTO) 0.7 X10'3 (0-0.9); MONOCYTES % (AUTO) 8.5 % (2-12); NEUTROPHILS # (AUTO) 4.5 X10'3 (1.8-7.7); NEUTROPHILS % (AUTO) 52.1 % (42-75); PLATELET COUNT 166 X10'3 (140-440); RED BLOOD COUNT 4.95 X10'6 (4.70-6.10); RED CELL DISTRIBUTION WIDTH 17.1 % (11.5-14.5); WHITE BLOOD COUNT 8.6 X10'3 (4.5-11.0)
[2020-06-22 21:43] LABS: ALANINE AMINOTRANSFERASE 106 U/L (12-78); ALBUMIN 3.9 G/DL (3.4-5.0); ALBUMIN/GLOBULIN RATIO 0.9 (1.1-1.5); ALKALINE PHOSPHATASE 78 IU/L (46-116); ANION GAP 13 (8-16); ASPARTATE AMINO TRANSFERASE 134 U/L (10-37); BILIRUBIN,TOTAL 0.4 MG/DL (0.1-1.0); BLOOD UREA NITROGEN 5 MG/DL (7-18); BUN/CREATININE RATIO 5.8 (5.4-32.0); CALCIUM 8.8 MG/DL (8.5-10.1); CHLORIDE 104 MMOL/L (99-107); CREATININE 0.86 MG/DL (0.60-1.10); GLUCOSE 133 MG/DL (70-104); POTASSIUM 3.4 MMOL/L (3.5-5.1); SODIUM 141 MMOL/L (135-145); TOTAL CARBON DIOXIDE 23.6 MMOL/L (24-32); TOTAL PROTEIN 8.2 G/DL (6.4-8.2); eGFR > 90 ML/MIN
[2020-06-22 23:14] VITALS: BP 125/84
== END 2020-06-22 23:17 | disposition home or self-care (01) ==
LOC: ER 20:46
DX: R07.89 Other chest pain (principal); F10.10 Alcohol abuse, uncomplicated; J44.9 Chronic obstructive pulmonary disease, unspecified; I10 Essential (primary) hypertension; F17.200 Nicotine dependence, unspecified, uncomplicated; F12.90 Cannabis use, unspecified, uncomplicated; Z79.899 Other long term (current) drug therapy; Y90.9 Presence of alcohol in blood, level not specified
CPT/HCPCS: 36415; 71045; 80053; 83880; 84484; 85025; 93005; 99285

== ENCOUNTER → 2020-07-13 | Emergency (ER) | payer MEDICAID ==
[~2020-07-13] VITALS: Ht 177.8 cm; Wt 81.8 kg
[~2020-07-13] MED LIST changes: +CHLO25CA10 PO; +GABA600T13 PO
[2020-07-13 19:51] VITALS: BP 157/97
== END | disposition left against medical advice (07) ==
LOC: ER 19:27
DX: Z02.89 Encounter for other administrative examinations (principal); Z53.21 Procedure and treatment not carried out due to patient leaving prior to being seen by health care provider

== ENCOUNTER 2020-07-14 08:17 | Emergency (ER) | payer MEDICAID ==
[~2020-07-14] VITALS: Ht 177.8 cm; Wt 81.7 kg
[~2020-07-14 08:17] MED LIST changes: -CHLO25CA10 PO; -GABA600T13 PO
[2020-07-14 08:31] VITALS: BP 129/87
[2020-07-14] MEDS ORDERED: gabapentin 400mg capsule PO ONE ×2 (10:25→10:40)
[2020-07-14] MEDS ORDERED: chlordiazePOXIDE 25mg capsule PO ONE (10:45)
[2020-07-14] MEDS ORDERED: CHLO25CA10 PO (10:46)
[2020-07-14] MEDS ORDERED: GABA600T13 PO (10:46)
== END 2020-07-14 11:12 | disposition home or self-care (01) ==
LOC: ER 08:17
DX: Z00.8 Encounter for other general examination (principal); F10.10 Alcohol abuse, uncomplicated; R07.89 Other chest pain; F41.9 Anxiety disorder, unspecified; I10 Essential (primary) hypertension; J44.9 Chronic obstructive pulmonary disease, unspecified; F12.90 Cannabis use, unspecified, uncomplicated; Z72.89 Other problems related to lifestyle; Z79.899 Other long term (current) drug therapy; Y90.9 Presence of alcohol in blood, level not specified
CPT/HCPCS: 99283

== ENCOUNTER 2020-07-19 09:04 | Inpatient (IN) | payer MEDICAID ==
[~2020-07-19] VITALS: Ht 177.8 cm; Wt 84.1 kg
[~2020-07-19 09:04] MED LIST changes: +CHLO25CA10 PO; +GABA600T13 PO
[2020-07-19] MEDS ORDERED: LORazepam 2 mg/ml vial IV ONE (09:20)
[2020-07-19 09:39] LABS: BASOPHILS # (AUTO) 0.1 X10'3 (0-0.2); BASOPHILS % (AUTO) 1.2 % (0-1); EOSINOPHILS # (AUTO) 0.1 X10'3 (0-0.9); EOSINOPHILS % (AUTO) 1.2 % (0-6); HEMATOCRIT 41.7 % (42.0-52.0); HEMOGLOBIN 14.2 g/dl (14.0-17.9); LYMPHOCYTES % (AUTO) 21.9 % (21-51); MEAN CORPUSCULAR HEMOGLOBIN 34.9 PG (27.0-31.0); MEAN CORPUSCULAR HGB CONC 34.2 g/dL (33.0-36.5); MEAN PLATELET VOLUME 8.2 FL (7.4-10.4); MONOCYTES # (AUTO) 1.5 X10'3 (0-0.9); MONOCYTES % (AUTO) 16.5 % (2-12); NEUTROPHILS # (AUTO) 5.3 X10'3 (1.8-7.7); NEUTROPHILS % (AUTO) 59.2 % (42-75); PLATELET COUNT 193 X10'3 (140-440); RED BLOOD COUNT 4.08 X10'6 (4.70-6.10); RED CELL DISTRIBUTION WIDTH 15.7 % (11.5-14.5)
[2020-07-19 09:47] LABS: ALANINE AMINOTRANSFERASE 138 U/L (12-78); ALBUMIN 2.8 G/DL (3.4-5.0); ALBUMIN/GLOBULIN RATIO 0.7 (1.1-1.5); ALKALINE PHOSPHATASE 105 IU/L (46-116); ANION GAP 10 (8-16); ASPARTATE AMINO TRANSFERASE 90 U/L (10-37); BILIRUBIN,TOTAL 0.6 MG/DL (0.1-1.0); BLOOD UREA NITROGEN 7 MG/DL (7-18); CALCIUM 9.1 MG/DL (8.5-10.1); CHLORIDE 105 MMOL/L (99-107); CREATININE 0.88 MG/DL (0.60-1.10); GLUCOSE 110 MG/DL (70-104); POTASSIUM 3.6 MMOL/L (3.5-5.1); SODIUM 141 MMOL/L (135-145); TOTAL CARBON DIOXIDE 26.1 MMOL/L (24-32); TOTAL PROTEIN 6.8 G/DL (6.4-8.2); eGFR > 90 ML/MIN
[2020-07-19] MEDS ORDERED: ketorolac tromethamine 15mg/ml inj. IM ONE (09:55)
[2020-07-19 10:21] LABS: PLATELET ESTIMATE NORMAL; TOTAL CELLS COUNTED 100
[2020-07-19] MEDS ORDERED: orphenadrine citrate 60mg/2ml inj. IM ONE (10:25)
[2020-07-19 10:48] LABS: CLARITY,URINE SLIGHTLY CLOUDY (Clear); COLOR,URINE YELLOW (Yellow); GLUCOSE, URINE NEGATIVE (Neg); KETONES,URINE NEGATIVE (Neg); LEUKOCYTE ESTERASE ,URINE TRACE (Neg); NITRITES, URINE NEGATIVE (Neg); OCCULT BLOOD,URINE TRACE-LYSED (Neg); PH,URINE 5.5 (4.8-8.0); PROTEIN,URINE NEGATIVE (Neg); UROBILINOGEN,URINE 0.2 E.U/dL (0.2-1.0)
[2020-07-19 10:51] LABS: UA COLLECTION TYPE CLN CATCH MIDSTREAM
[2020-07-19 11:02] LABS: BACTERIA,URINE 1+ /HPF (Neg); HYALINE CASTS 0-3 /LPF (NEGATIVE); MUCUS STRANDS MODERATE /LPF (Neg); RBC,URINE 0-2 /HPF (0-2); SQUAMOUS EPITHELIAL CELL,UR MODERATE /LPF (FEW); TRANSITIONAL EPI CELLS,URINE FEW /HPF; WBC,URINE 0-4 /HPF (0-4)
[2020-07-19] MEDS ORDERED: thiamine 100mg/ml 2ml inj. IV ONE ×2 (11:05→14:35)
[2020-07-19] MEDS ORDERED: folic acid 1mg/0.2ml inj IV ONE (11:05)
[2020-07-19] MEDS ORDERED: normal saline 1000ml 1,000 ML IV ONE (13:15)
[2020-07-19 13:29] LABS: ABG BASE EXCESS 0.5 mmol/L (-2.0-2.0); ABG HCO3 23.8 mmol/L (22.0-26.0); ABG OXYGEN SATURATION 92.7 % (94-97); ABG PCO2 (T) 34.6 mmHg (35.0-48.0); ABG PO2 (T) 59.7 mmHg (75.0-100.0); ALLEN'S TEST POSITIVE; FCOHb 1.7 % (0.0-3.9); FMetHb 0.3 % (0.0-1.5); FO2Hb 90.8 % (94-97)
[2020-07-19] MEDS ORDERED: ondansetron/PF 4mg/2ml inj IV ONE (14:00)
[2020-07-19] MEDS ORDERED: magnesium hydroxide 30ml (MOM) UD suspension PO PRN (14:35)
[2020-07-19] MEDS ORDERED: mag hydrox/Alum hydrox/simeth 30ml oral suspension PO PRN (14:35)
[2020-07-19] MEDS ORDERED: haloperidol lactate 5mg/ml inj IM PRN (14:35)
[2020-07-19] MEDS ORDERED: ondansetron/PF 4mg/2ml inj IV PRN (14:35)
[2020-07-19] MEDS ORDERED: acetaminophen 325mg tablet PO PRN (14:35)
[2020-07-19] MEDS ORDERED: dextrose 50%-water 50ml dispensing syringe IV PRN (14:35)
[2020-07-19] MEDS ORDERED: LORazepam 2 mg/ml vial IV PRN ×2 (14:35)
[2020-07-19] MEDS ORDERED: CHLO25CA10 PO (15:01)
[2020-07-19] MEDS ORDERED: LOSA25TA41 PO (15:01)
[2020-07-19] MEDS ORDERED: THIA50TA10 PO (15:01)
[2020-07-19] MEDS ORDERED: GABA600T13 PO (15:01)
[2020-07-19] MEDS ORDERED: BUDE10.22 INH (15:01)
[2020-07-19] MEDS ORDERED: FOLI0.4T14 PO (15:01)
[2020-07-19] MEDS ORDERED: ALBU8.5H8 INH (15:01)
[2020-07-19] MEDS ORDERED: CLON0.1T PO (15:01)
[2020-07-19 15:18] LABS: URINE AMPHETAMINE SCREEN NEGATIVE (Neg); URINE BARBITUATE SCREEN NEGATIVE (Neg); URINE BENZODIAZEPINES SCREEN NEGATIVE (Neg); URINE CANNABINOID SCREEN NEGATIVE (Neg); URINE COCAINE SCREEN NEGATIVE (Neg); URINE METHADONE SCREEN NEGATIVE (Neg); URINE OPIATE SCREEN NEGATIVE (Neg); URINE PHENCYCLIDINE SCREEN NEGATIVE (Neg)
[2020-07-19] MEDS: normal saline 1000ml 1,000 ML IV SCH (15:56)
[2020-07-19 17:30] VITALS: BP 168/98
[2020-07-19] MEDS ORDERED: albuterol 2.5 MG/3 ML nebule NEB PRN (17:45)
[2020-07-19 18:00] VITALS: BP 142/100
--- NOTE | 2020-07-19 19:10 | NUR ---
Patient in room PCU 3012. I have received report from [place] and had the opportunity to ask questions and assume patient care.
[2020-07-19] MEDS ORDERED: ketorolac tromethamine 15mg/ml inj. IV ONE ×2 (19:25→20:25)
[2020-07-19] MEDS: albuterol 2.5 MG/3 ML nebule NEB SCH (20:01)
[2020-07-19] MEDS: budesonide 0.5mg/2ml UD nebule IH SCH (20:01)
--- NOTE | 2020-07-19 20:23 | NUR ---
1 time dose of toradol ordered for back pain. Bottle was accidently cracked, pharmacy called who notified me that I need to reorder another one time dose to be able to pull medication.
[2020-07-19] MEDS: cloNIDine 0.1 mg tablet PO SCH (20:30)
[2020-07-19 22:00] VITALS: BP 146/94
[2020-07-20 02:00] VITALS: BP 163/93
[2020-07-20] MEDS: albuterol 2.5 MG/3 ML nebule NEB SCH ×4 (02:48→21:41)
[2020-07-20] MEDS: normal saline 1000ml 1,000 ML IV SCH ×2 (03:12→15:15)
[2020-07-20 06:00] VITALS: BP 156/93
[2020-07-20 06:43] LABS: BASOPHILS # (AUTO) 0.1 X10'3 (0-0.2); EOSINOPHILS # (AUTO) 0.1 X10'3 (0-0.9); EOSINOPHILS % (AUTO) 1.5 % (0-6); HEMATOCRIT 38.9 % (42.0-52.0); HEMOGLOBIN 13.3 g/dl (14.0-17.9); LYMPHOCYTES # (AUTO) 1.6 X10'3 (1.1-4.8); LYMPHOCYTES % (AUTO) 24.1 % (21-51); MEAN CORPUSCULAR HEMOGLOBIN 35.2 PG (27.0-31.0); MEAN CORPUSCULAR HGB CONC 34.1 g/dL (33.0-36.5); MEAN CORPUSCULAR VOLUME 103.2 FL (78-98); MEAN PLATELET VOLUME 8.2 FL (7.4-10.4); MONOCYTES # (AUTO) 1.1 X10'3 (0-0.9); MONOCYTES % (AUTO) 15.9 % (2-12); NEUTROPHILS # (AUTO) 3.8 X10'3 (1.8-7.7); NEUTROPHILS % (AUTO) 57.5 % (42-75); PLATELET COUNT 198 X10'3 (140-440); RED BLOOD COUNT 3.77 X10'6 (4.70-6.10); RED CELL DISTRIBUTION WIDTH 15.7 % (11.5-14.5); WHITE BLOOD COUNT 6.6 X10'3 (4.5-11.0)
[2020-07-20 06:57] LABS: ALANINE AMINOTRANSFERASE 130 U/L (12-78); ALBUMIN 2.6 G/DL (3.4-5.0); ALBUMIN/GLOBULIN RATIO 0.7 (1.1-1.5); ALKALINE PHOSPHATASE 95 IU/L (46-116); ANION GAP 7 (8-16); ASPARTATE AMINO TRANSFERASE 74 U/L (10-37); BILIRUBIN,TOTAL 0.5 MG/DL (0.1-1.0); BLOOD UREA NITROGEN 6 MG/DL (7-18); BUN/CREATININE RATIO 7.8 (5.4-32.0); CALCIUM 8.6 MG/DL (8.5-10.1); CHLORIDE 108 MMOL/L (99-107); CREATININE 0.77 MG/DL (0.60-1.10); GLUCOSE 105 MG/DL (70-104); POTASSIUM 3.5 MMOL/L (3.5-5.1); SODIUM 142 MMOL/L (135-145); TOTAL CARBON DIOXIDE 26.9 MMOL/L (24-32); TOTAL PROTEIN 6.5 G/DL (6.4-8.2); eGFR > 90 ML/MIN
[2020-07-20] MEDS: enoxaparin 40mg/0.4ml syringe SUBCUT SCH (07:23)
[2020-07-20] MEDS: folic acid 0.4mg tablet PO SCH (07:24)
[2020-07-20] MEDS: thiamine 100mg tablet PO SCH (07:25)
[2020-07-20] MEDS: losartan 25mg tablet PO SCH (07:25)
[2020-07-20] MEDS: cloNIDine 0.1 mg tablet PO SCH ×2 (07:25→19:34)
[2020-07-20 07:42] LABS: PLATELET ESTIMATE NORMAL; TOTAL CELLS COUNTED 100
[2020-07-20] MEDS: budesonide 0.5mg/2ml UD nebule IH SCH ×2 (08:32→21:41)
[2020-07-20 11:00] VITALS: BP 142/103
[2020-07-20 15:00] VITALS: BP 156/93
[2020-07-20 18:00] VITALS: BP 162/106
--- NOTE | 2020-07-20 19:00 | NUR ---
Patient in room PCU 3012. I have received report from FERMÍN Calderón and had the opportunity to ask questions and assume patient care.
[2020-07-20] MEDS ORDERED: ketorolac tromethamine 15mg/ml inj. IV ONE (19:25)
[2020-07-20 22:00] VITALS: BP 153/98
--- NOTE | 2020-07-21 01:23 | NUR ---
Pt HR down to 40's, BP 166/105. Notified Dr Billingsley, he ordered Norvasc 2.5mg PO Q am and to stop clonadine.
[2020-07-21] MEDS: normal saline 1000ml 1,000 ML IV SCH ×2 (01:33→06:35)
[2020-07-21 02:00] VITALS: BP 173/100
[2020-07-21] MEDS: albuterol 2.5 MG/3 ML nebule NEB SCH ×2 (02:26→09:36)
--- NOTE | 2020-07-21 06:25 | NUR ---
Problems reprioritized. Patient report given, questions answered & plan of care reviewed with FERMÍN Green.
[2020-07-21 07:31] LABS: BASOPHILS # (AUTO) 0.1 X10'3 (0-0.2); BASOPHILS % (AUTO) 0.8 % (0-1); EOSINOPHILS # (AUTO) 0.1 X10'3 (0-0.9); EOSINOPHILS % (AUTO) 1.4 % (0-6); HEMATOCRIT 39.9 % (42.0-52.0); HEMOGLOBIN 13.7 g/dl (14.0-17.9); LYMPHOCYTES # (AUTO) 1.9 X10'3 (1.1-4.8); LYMPHOCYTES % (AUTO) 27.6 % (21-51); MEAN CORPUSCULAR HEMOGLOBIN 35.5 PG (27.0-31.0); MEAN CORPUSCULAR HGB CONC 34.5 g/dL (33.0-36.5); MEAN CORPUSCULAR VOLUME 103.1 FL (78-98); MEAN PLATELET VOLUME 8.3 FL (7.4-10.4); MONOCYTES # (AUTO) 1.2 X10'3 (0-0.9); MONOCYTES % (AUTO) 17.8 % (2-12); NEUTROPHILS # (AUTO) 3.6 X10'3 (1.8-7.7); NEUTROPHILS % (AUTO) 52.4 % (42-75); PLATELET COUNT 224 X10'3 (140-440); RED BLOOD COUNT 3.87 X10'6 (4.70-6.10); RED CELL DISTRIBUTION WIDTH 15.4 % (11.5-14.5); WHITE BLOOD COUNT 6.8 X10'3 (4.5-11.0)
[2020-07-21 07:47] LABS: ALANINE AMINOTRANSFERASE 114 U/L (12-78); ALBUMIN 2.7 G/DL (3.4-5.0); ALBUMIN/GLOBULIN RATIO 0.7 (1.1-1.5); ALKALINE PHOSPHATASE 92 IU/L (46-116); ANION GAP 7 (8-16); ASPARTATE AMINO TRANSFERASE 55 U/L (10-37); BILIRUBIN,TOTAL 0.5 MG/DL (0.1-1.0); BLOOD UREA NITROGEN 3 MG/DL (7-18); BUN/CREATININE RATIO 3.6 (5.4-32.0); CALCIUM 8.7 MG/DL (8.5-10.1); CHLORIDE 107 MMOL/L (99-107); CREATININE 0.83 MG/DL (0.60-1.10); GLUCOSE 97 MG/DL (70-104); POTASSIUM 3.3 MMOL/L (3.5-5.1); SODIUM 143 MMOL/L (135-145); TOTAL CARBON DIOXIDE 28.6 MMOL/L (24-32); TOTAL PROTEIN 6.8 G/DL (6.4-8.2); eGFR > 90 ML/MIN
[2020-07-21] MEDS: losartan 25mg tablet PO SCH (07:53)
[2020-07-21] MEDS: folic acid 0.4mg tablet PO SCH (07:53)
[2020-07-21] MEDS: enoxaparin 40mg/0.4ml syringe SUBCUT SCH (07:53)
[2020-07-21] MEDS: thiamine 100mg tablet PO SCH (07:54)
[2020-07-21] MEDS ORDERED: amLODIPine 2.5mg tablet PO SCH (08:00)
[2020-07-21] MEDS ORDERED: potassium Cl 20 mEq SR tablet PO PRN (08:55)
[2020-07-21] MEDS: budesonide 0.5mg/2ml UD nebule IH SCH (09:36)
[2020-07-21 11:00] VITALS: BP 136/103
== END 2020-07-21 12:24 | disposition home or self-care (01) | DRG 775 ==
LOC: ER 09:04 → ED HOLD 14:35 → PCU 3S 17:15
PROVIDERS: ADMIT Family Medicine; ATTEND Family Medicine
DX: F10.239 Alcohol dependence with withdrawal, unspecified (principal); G93.40 Encephalopathy, unspecified; F12.90 Cannabis use, unspecified, uncomplicated; I10 Essential (primary) hypertension; J44.9 Chronic obstructive pulmonary disease, unspecified; M54.5 Low back pain; Y90.9 Presence of alcohol in blood, level not specified
CPT/HCPCS: 36415; 36600; 70450; 80053; 80305; 81001; 82140; 82803; 82948; 83605; 84145; 85007; 85018; 85025; 87081; 87088; 93005; 94640; 94760; 96372; 96374; 96375; 97110; 97161; 97530; 99285; G0378; J1650; J1885; J2060; J2360; J2405; J3411; J3490; J7030; J7626